=== PATIENT | female | born 2000 | race Two or more races ===

== ENCOUNTER 2018-05-22 10:37 | Outpatient (CLI) | payer OTHER ==
[~2018-05-22] VITALS: Ht 167.6 cm; Wt 52.2 kg
== END 2018-05-22 11:00 | disposition home or self-care (01) ==
LOC: OFIC 805 10:37
DX: H60.313 Diffuse otitis externa, bilateral (principal); H90.41 Sensorineural hearing loss, unilateral, right ear, with unrestricted hearing on the contralateral side; H61.23 Impacted cerumen, bilateral